=== PATIENT | male | born 1970 | race Caucasian/White ===

== ENCOUNTER 2024-07-31 18:12 | Emergency (ER) | payer MEDICAID, OTHER ==
[~2024-07-31] VITALS: Ht 167.6 cm; Wt 85.3 kg
[2024-07-31 18:27] VITALS: BP 149/92; PULSE 77; RESP 18; O2SAT 96
[2024-07-31] MEDS: diphenhdrAMINE HCL 50 MG/1 ML VL IM ONE (20:34)
[2024-07-31] MEDS: DexAMETHasone SOD PHOS 10MG/1ML VIAL INJ IM ONE (20:35)
== END 2024-08-01 01:00 | disposition left against medical advice (07) ==
LOC: ER 18:12
DX: T78.40XA Allergy, unspecified, initial encounter (principal); Z53.21 Procedure and treatment not carried out due to patient leaving prior to being seen by health care provider; X58.XXXA Exposure to other specified factors, initial encounter
CPT/HCPCS: 96372; J1100; J1200